=== PATIENT | female | born 2005 | race Hispanic/Latino ===

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

== ENCOUNTER 2023-04-30 17:56 | Emergency (ER) | payer OTHER ==
[~2023-04-30 17:56] MED LIST changes: +BENZONATATE100 MG PO; +IBUPROFEN600 MG PO; +MUCINEX DM ER1 EAC1 PO; +ONDANSETRON ODT4 MG PO
[2023-04-30] MEDS ORDERED: IBUPROFEN 600 MG TAB PO STA (18:20)
[2023-04-30] MEDS ORDERED: IBUPROFEN 600 MG TAB ONE (18:25)
[2023-04-30] MEDS ORDERED: CEPHALEXIN MONOHYDRATE 250 MG CAP PO ONE (18:45)
[2023-04-30] MEDS ORDERED: CEPHALEXIN MONOHYDRATE 250 MG CAP ONE (18:48)
[2023-04-30 18:51] VITALS: O2SAT 98
[2023-04-30] MEDS ORDERED: CEPHALEXIN500 MG PO (18:53)
== END 2023-04-30 19:02 | disposition home or self-care (01) ==
LOC: EDBD 17:56 → FSED 17:59
DX: R50.9 Fever, unspecified (principal); N39.0 Urinary tract infection, site not specified; R05.9 Cough, unspecified; Z20.822 Contact with and (suspected) exposure to COVID-19
CPT/HCPCS: 0223U; 81003; 81025; 83518; 87400; 99283

== ENCOUNTER 2024-09-07 12:26 | Emergency (ER) | payer OTHER ==
[~2024-09-07] VITALS: Ht 154.9 cm; Wt 57.8 kg
[~2024-09-07 12:26] MED LIST changes: +CEPHALEXIN500 MG PO
[2024-09-07] MEDS: IBUPROFEN 600 MG TAB PO STA (13:03)
[2024-09-07] MEDS: AMOXICILLIN/CLAVULANATE K 875 MG TAB PO STA (13:03)
[2024-09-07] MEDS: HYDROCODONE/APAP 5MG-325MG TAB PO ONE (13:04)
[2024-09-07] MEDS ORDERED: KETOROLAC TROME10 MG PO (13:57)
[2024-09-07] MEDS ORDERED: AMOX TR-K CLV1 EAC2 PO (13:57)
[2024-09-07 14:31] VITALS: PULSE 84; RESP 14; TEMP 99; O2SAT 97
[2024-09-07] MEDS: RABIES IMMUNE GLOBULIN/PF 150 UNIT/ML VIAL IM ONE (14:31)
== END 2024-09-07 14:38 | disposition home or self-care (01) ==
LOC: FSED 12:30
DX: S81.852A Open bite, left lower leg, initial encounter (principal); S71.151A Open bite, right thigh, initial encounter; S93.492A Sprain of other ligament of left ankle, initial encounter; W54.0XXA Bitten by dog, initial encounter; Y92.89 Other specified places as the place of occurrence of the external cause
CPT/HCPCS: 99284